=== PATIENT | female | born 1990 | race Caucasian/White ===

== ENCOUNTER 2022-04-20 10:05 | Emergency (ER) | payer BC ==
[2022-04-20] MEDS ORDERED: Ketorolac Tromethamine 30 MG/ML VIAL ONE (10:42)
[2022-04-20] MEDS ORDERED: Ondansetron PF 4 MG/2 ML Vial ONE (10:42)
[2022-04-20 10:45] LABS: #Eosinphils 0.1 10x3/uL (0.0-0.5); #Monocytes 0.3 10x3/uL (0.0-1.1); #Neutrophils 5.1 10x3/uL (1.5-8.4); %Basophils 0.3 % (0.0-2.0); %Eosinophils 1.3 % (0.0-6.0); %Lymphocytes 20.5 % (18.0-47.0); %Monocytes 4.5 % (0.0-10.0); %Neutrophils 73.1 % (40.0-75.0); Hemoglobin 13.7 g/dL (12.0-15.5); Mean Corpuscular HGB CONC 33.6 g/dL (32.0-36.0); Mean Corpuscular Hemoglobin 29.5 pg (27.0-33.0); Mean Corpuscular Volume 87.9 fl (81.6-98.3); Mean Platelet Volume 10.6 fl (7.4-10.4); Platelet Count 295 10x3/uL (150-450); RBC Distribution Width 12.9 % (11.5-14.5); Red Blood Cell (RBC) Count 4.64 10x6/uL (3.90-5.03); White Blood Cell (WBC) Count 6.9 10x3/uL (3.5-10.5)
[2022-04-20 10:57] LABS: Bilirubin Neg (Negative); Blood, Urine 250 (Negative); Clarity Cloudy (Clear); Glucose, Urine (Dipstick) Normal (Negative); Ketone, Urine 5 mg/dL (Negative); Leukocyte 25 (Negative); Nitrite Negative (Negative); Protein, Urine (Dipstick) 30 mg/dl (Neg-Trace); Urobilinogen Normal mg/dL (Less than 2)
[2022-04-20 10:58] LABS: ALT (SGPT) 33 U/L (8-55); AST (SGOT) 29 U/L (5-34); Albumin 4.3 g/dL (3.5-5.0); Alkaline Phosphatase 80 U/L (40-110); Anion Gap 16 mmol/L (10-20); BUN (Urea Nitrogen) 9 mg/dL (7.0-18.7); Calc. Creatinine Clearance 0 mL/min (70-130); Calcium 9.1 mg/dL (7.8-10.44); Carbon Dioxide 23 mmol/L (22-29); Chloride 106 mmol/L (98-107); Globulin 2.8 g/dL (2.4-3.5); Glucose 118 mg/dL (70-105); Lipase 13 U/L (8-78); Potassium 4.1 mmol/L (3.5-5.1); Protein, Total 7.1 g/dL (6.0-8.3); Sodium 141 mmol/L (136-145)
[2022-04-20 10:59] LABS: Pregnancy Test - Urine (BHCG) Negative (Negative); Pregu Control Background? CLEAR/WHITE (CLR/WHITE); Pregu Control Bar Appear? YES (CONTROL BAR)
[2022-04-20] MEDS ORDERED: Morphine 4 MG/ML VIAL ONE (11:01)
[2022-04-20 11:15] LABS: Bacteria/HPF 3+ HPF (None Seen); RBC/HPF Greater than 50 HPF (0-3); WBC/HPF 0-3 HPF (0-3)
[2022-04-20 11:16] LABS: Yeast-Budding Rare HPF (None Seen)
== END 2022-04-20 14:22 | disposition home or self-care (01) ==
LOC: CSHERS 10:05
DX: N20.2 Calculus of kidney with calculus of ureter (principal)
CPT/HCPCS: 74176; 80053; 81003; 81015; 81025; 83690; 85025; 96374; 96375; J1885; J2270; J2405

== ENCOUNTER 2023-02-02 03:41 | Inpatient (IN) | payer BC ==
[2023-02-02 04:37] VITALS: BMI 30.4
[2023-02-02] MEDS: Lactated Ringer's 1,000 ML IV SCH ×2 (05:09→18:59)
[2023-02-02] MEDS ORDERED: hydrALAZINE 20 MG/ML VIAL SLOW IVP PRN ×2 (06:11→20:29)
[2023-02-02] MEDS ORDERED: HYDROcodone/Acetaminophen 5/325 mg Tablet PO PRN ×3 (06:11→20:29)
[2023-02-02] MEDS ORDERED: Promethazine HCl 25 MG/ML VIAL IM PRN ×3 (06:11→20:29)
[2023-02-02] MEDS ORDERED: Carboprost 250 MCG/ML AMP IM PRN (06:11)
[2023-02-02] MEDS ORDERED: Acetaminophen 500 MG TAB PO PRN (06:11)
[2023-02-02] MEDS ORDERED: Ondansetron PF 4 MG/2 ML Vial IVP PRN ×3 (06:11→20:29)
[2023-02-02] MEDS ORDERED: Tranexamic Acid 1,000 MG/10 ML VIAL IVP PRN (06:11)
[2023-02-02] MEDS ORDERED: Lidocaine 1% (PF) 30 ML VIAL SC PRN (06:11)
[2023-02-02] MEDS ORDERED: Diphenoxylate HCl/Atropine Tablet PO PRN (06:11)
[2023-02-02] MEDS ORDERED: Misoprostol 200 MCG TAB PR PRN (06:11)
[2023-02-02] MEDS ORDERED: Ibuprofen 800 MG TAB PO PRN (06:11)
[2023-02-02] MEDS ORDERED: Butorphanol Tartrate 1 MG/ML VIAL SLOW IVP PRN (06:11)
[2023-02-02] MEDS ORDERED: Methylergonovine 0.2 MG/ML VIAL IM PRN (06:11)
[2023-02-02] MEDS ORDERED: NS w/ Oxytocin 30 units 500 ML IV SCH ×2 (06:15)
[2023-02-02 06:47] LABS: ALT (SGPT) 11 U/L (8-55); AST (SGOT) 15 U/L (5-34); Albumin 3.2 g/dL (3.5-5.0); Alkaline Phosphatase 78 U/L (40-110); Anion Gap 16 mmol/L (10-20); BUN (Urea Nitrogen) 8 mg/dL (7.0-18.7); Bilirubin, Total 0.5 mg/dL (0.2-1.2); Calc. Creatinine Clearance 175 mL/min (70-130); Calcium 8.5 mg/dL (7.8-10.44); Carbon Dioxide 18 mmol/L (22-29); Chloride 109 mmol/L (98-107); Estimated GFR 120; Globulin 2.3 g/dL (2.4-3.5); Glucose 86 mg/dL (70-105); Potassium 3.6 mmol/L (3.5-5.1); Protein, Total 5.5 g/dL (6.0-8.3); Sodium 139 mmol/L (136-145)
[2023-02-02 06:48] LABS: Hemoglobin 11.1 g/dL (12.0-15.5); Mean Corpuscular HGB CONC 34.4 g/dL (32.0-36.0); Mean Corpuscular Hemoglobin 30.1 pg (27.0-33.0); Mean Corpuscular Volume 87.5 fl (81.6-98.3); Mean Platelet Volume 11.2 fl (7.4-10.4); Platelet Count 254 10x3/uL (150-450); Red Blood Cell (RBC) Count 3.69 10x6/uL (3.90-5.03); White Blood Cell (WBC) Count 7.3 10x3/uL (3.5-10.5)
[2023-02-02 06:52] LABS: Syphilis Antibody Nonreactive (Nonreactive); Syphilis Antibody Index 0.05 S/CO (<1.00 Non-Reactive)
[2023-02-02 06:53] LABS: Hep B Surf Ag - L&D Non-Reactive S/CO (NonReactive)
[2023-02-02] MEDS ORDERED: Fentanyl 2 mcg/Bup 0.1% Cadd 100 ML ONE (12:46)
[2023-02-02] MEDS ORDERED: Lactated Ringer's 500 ML IV PRN (13:23)
[2023-02-02] MEDS ORDERED: Acetaminophen 325 MG TAB PO PRN (13:23)
[2023-02-02] MEDS ORDERED: Moisturizing Cream (Eucerin) 113 GM JAR TOP PRN (13:23)
[2023-02-02] MEDS ORDERED: diphenhydrAMINE 50 MG/ML VIAL IVP PRN (13:23)
[2023-02-02] MEDS ORDERED: ePHEDrine Sulfate 50 MG/10 ML VIAL SLOW IVP PRN (13:23)
[2023-02-02] MEDS ORDERED: Naloxone HCl 0.4 mg/ml Vial IVP PRN ×2 (13:23)
[2023-02-02] MEDS ORDERED: Fentanyl 2 mcg/Bupivacaine 0.1% Cassette 100 ML EPIDURAL SCH (13:30)
[2023-02-02] MEDS ORDERED: Communication Order-Pharmacy FS SCH (13:30)
[2023-02-02] MEDS ORDERED: diphenhydrAMINE 25 MG CAP PO PRN (20:29)
[2023-02-02] MEDS ORDERED: Preparation H Ointment 28 GM TUBE PR PRN (20:29)
[2023-02-02] MEDS ORDERED: Bisacodyl 10 MG SUPP PR PRN (20:29)
[2023-02-02] MEDS ORDERED: Benzocaine-Menthol 82.5 ML CAN TOP PRN (20:29)
[2023-02-02] MEDS ORDERED: Milk Of Magnesia 30 ML UDCUP PO PRN (20:29)
[2023-02-02] MEDS ORDERED: Boostrix 0.5 ML (Tdap) VIAL (>/=7 yrs of age) IM ONE (20:29)
[2023-02-02] MEDS ORDERED: Lanolin Ointment 7 GM TUBE TOP PRN (20:29)
[2023-02-02] MEDS: Ibuprofen 800 MG TAB PO SCH (20:36)
[2023-02-02] MEDS: Docusate 100 MG CAP PO SCH (21:43)
[2023-02-03] MEDS: Ibuprofen 800 MG TAB PO SCH ×3 (06:14→21:20)
[2023-02-03] MEDS: Ferrous Sulfate 325 MG TAB PO SCH ×2 (08:51→17:28)
[2023-02-03] MEDS: Prenatal Vitamin 1 TAB PO SCH (08:54)
[2023-02-03] MEDS: Docusate 100 MG CAP PO SCH ×2 (08:54→21:46)
[2023-02-03] MEDS ORDERED: valACYclovir 500 MG TAB PO SCH (10:00)
[2023-02-03] MEDS: valACYclovir 500 MG TAB PO SCH (21:20)
[2023-02-04] MEDS: Ibuprofen 800 MG TAB PO SCH (05:00)
[2023-02-04] MEDS: Ferrous Sulfate 325 MG TAB PO SCH (08:46)
[2023-02-04] MEDS: Prenatal Vitamin 1 TAB PO SCH (08:47)
[2023-02-04] MEDS: valACYclovir 500 MG TAB PO SCH (08:48)
[2023-02-04] MEDS: Docusate 100 MG CAP PO SCH (08:49)
[2023-02-04] MEDS ORDERED: Labetalol HCl 100 MG TAB PO SCH ×2 (10:00→21:00)
[2023-02-04 11:32] VITALS: BP 140/80; TEMP 99
== END 2023-02-04 12:00 | disposition home or self-care (01) | DRG 807 ==
LOC: CSHLD 03:41 → CSHPP 20:15
PROVIDERS: ADMIT Student in an Organized Health Care Education/Training Program; ATTEND Student in an Organized Health Care Education/Training Program
PROC: 10E0XZZ Delivery of Products of Conception, External Approach (ICD-10-PCS; principal; 2023-02-02)
PROC: 10907ZC Drainage of Amniotic Fluid, Therapeutic from Products of Conception, Via Natural or Artificial Opening (ICD-10-PCS; 2023-02-02)
DX: O13.4 Gestational [pregnancy-induced] hypertension without significant proteinuria, complicating childbirth (principal); Z37.0 Single live birth; Z3A.39 39 weeks gestation of pregnancy; L40.9 Psoriasis, unspecified; O99.72 Diseases of the skin and subcutaneous tissue complicating childbirth; Z88.0 Allergy status to penicillin; Z88.2 Allergy status to sulfonamides; Z88.1 Allergy status to other antibiotic agents
CPT/HCPCS: 51702; 80053; 85027; 86780; 86850; 86900; 86901; 87340; J2590; J7120